=== PATIENT | male | born 1965 | race Caucasian/White ===

== ENCOUNTER 2020-11-09 09:53 | Outpatient (CLI) | payer OTHER ==
[2020-11-09 20:03] LABS: SARS-CoV-2 PCR by NAA Not Detected (NotDetected)
== END 2020-11-09 09:54 | disposition home or self-care (01) ==
LOC: CSHLAB 09:53
PROVIDERS: ATTEND Internal Medicine Gastroenterology
DX: Z20.822 Contact with and (suspected) exposure to COVID-19 (principal); Z12.11 Encounter for screening for malignant neoplasm of colon
CPT/HCPCS: U0003; U0005